=== PATIENT | female | born 1990 | race American Indian/Alaskan Native ===

== ENCOUNTER 2021-02-09 18:47 | Outpatient (CLI) | payer OTHER ==
[2021-02-09 19:19] LABS: BASOPHILS # (AUTO) 0.1 10^3/uL (0.0-0.1); BASOPHILS % (AUTO) 0.6 %; EOSINOPHILS # (AUTO) 0.2 10^3/uL (0.0-0.7); EOSINOPHILS % (AUTO) 1.3 %; HCT - HEMATOCRIT 33.9 % (37.0-47.0); HGB - HEMOGLOBIN 11.6 g/dL (12.0-16.0); LYMPHOCYTES # (AUTO) 3.2 10^3/uL (1.5-3.5); LYMPHOCYTES % (AUTO) 28.1 %; MEAN CORPUSCULAR HEMOGLOBIN 33.2 pg (27.0-31.0); MEAN CORPUSCULAR HGB CONC 34.2 g/dL (32.0-36.0); MEAN CORPUSCULAR VOLUME 97.1 fL (81.0-99.0); MEAN PLATELET VOLUME 9.1 fL (7.9-10.8); MONOCYTES # (AUTO) 0.6 10^3/uL (0.0-1.0); MONOCYTES % (AUTO) 5.2 %; NEUTROPHILS # (AUTO) 7.4 10^3/uL (1.5-6.6); NEUTROPHILS % (AUTO) 64.2 %; PLT - PLATELET COUNT 279 10^3/uL (130-450); RED BLOOD COUNT 3.49 10^6/uL (4.20-5.40); RED CELL DISTRIBUTION WIDTH 11.1 % (12.0-15.0); WHITE BLOOD COUNT 11.5 x10^3/uL (4.8-10.8)
[2021-02-09 19:57] LABS: MUDS CUTOFF CONCENTRATIONS CUTOFF CONC BELOW:
[2021-02-09 20:02] LABS: BILIRUBIN,URINE NEGATIVE (NEGATIVE); GLUCOSE, URINE (UA) NEGATIVE (NEGATIVE); KETONES,URINE (UA) NEGATIVE (NEGATIVE); LEUKOCYTE ESTERASE, URINE MODERATE (NEGATIVE); NITRITE,URINE NEGATIVE (NEGATIVE); OCCULT BLOOD,URINE NEGATIVE (NEGATIVE); PROTEIN,URINE NEGATIVE (NEGATIVE); UROBILINOGEN,URINE 0.2 (NORMAL) E.U./dL (NORMAL)
[2021-02-09 20:05] LABS: CLARITY,URINE HAZY (CLEAR)
[2021-02-09 20:10] LABS: RBC,URINE 0-5 /HPF (0-5)
[2021-02-09 20:11] LABS: AMPHETAMINE SCREEN,URINE NEGATIVE (NEGATIVE); BACTERIA,URINE Rare /HPF (None Seen); BARBITURATE SCREEN,UR NEGATIVE (NEGATIVE); BENZODIAZEPINES SCREEN, URINE NEGATIVE (NEGATIVE); COCAINE SCREEN URINE NEGATIVE (NEGATIVE); METHADONE SCREEN, URINE NEGATIVE (NEGATIVE); METHAMPHETAMINES SCREEN, URINE NEGATIVE (NEGATIVE); OPIATE SCREEN, URINE NEGATIVE (NEGATIVE); OXYCODONE SCREEN, URINE NEGATIVE (NEGATIVE); PROPOXYPHENE SCREEN, URINE NEGATIVE (NEGATIVE); SQUAMOUS EPITHELIAL CELL,UR FEW Squamous (<= Few); THC CANNABINOID SCREEN, URINE NEGATIVE (NEGATIVE); TRICYCLIC ANTIDEPRESSANT,URINE NEGATIVE (NEGATIVE)
--- NOTE | 2021-02-09 20:21 | Ultrasound Report ---
PROCEDURE: OB First Trimester w/TV INDICATIONS: SUPERVISION OF HIGH RISK OUTSIDE/PRIOR DATING DATA: Last menstrual period (LMP): 11/27/2020. LMP-based estimated date of delivery (DANE): 09/03/2021. First dating scan (date and location): 02/09/2021. Estimated date of delivery (DANE) from first dating scan: 09/17/2021. The below data below was generated using the ultrasound DANE of 09/17/2021 TECHNIQUE: Real-time scanning was performed of the fetus and maternal pelvic organs, with image documentation. Endovaginal scanning was also performed to better visualize the fetus and maternal ovaries. COMPARISON: None. FINDINGS: Embryo: Single living intrauterine fetus is present with a crown-rump length measuring 2.02 cm, 8 we eks 4 days. Yolk sac visualized. Heart rate: 164 bpm Measurement variability in dating: +/- 4 weeks by LMP, +/- 7 days by mean sac diameter (use before 6 weeks gestation if crown-rump length not able to be measured), +/- 5 days by crown-rump length (6-12 weeks gestation). Maternal organs: Ovaries unremarkable except for a presumed left-sided corpus luteum. IMPRESSION: Single living intrauterine fetus with a gestational age measuring 8 weeks and 4 days by today's ultra sound measurements responding to an DANE of 09/17/2021. Reviewed by: Montana Garcia MD on 02/09/2021 8:20 PM PDT Approved by: Montana Garcia MD on 02/09/2021 8:20 PM PDT Station ID: [id number]
== END 2021-02-09 18:48 | disposition home or self-care (01) ==
LOC: DI 18:47
PROVIDERS: ATTEND Obstetrics & Gynecology
DX: O09.91 Supervision of high risk pregnancy, unspecified, first trimester (principal); Z87.51 Personal history of pre-term labor; Z36.89 Encounter for other specified antenatal screening; Z3A.08 8 weeks gestation of pregnancy
CPT/HCPCS: 36415; 80306; 81001; 85025; 86592; 86762; 86787; 86803; 86850; 86900; 86901; 87086; 87340; 87389

== ENCOUNTER 2021-02-15 08:00 | Outpatient (CLI) | payer OTHER ==
[2021-02-15 22:31] LABS: CHLAMYDIA TRACHOMATIS DNA NEGATIVE (NEGATIVE); NEISSERIA GONORRHOEAE DNA NEGATIVE (NEGATIVE); TRICHOMONAS VAGINALIS DNA NEGATIVE (NEGATIVE)
== END 2021-02-15 23:59 | disposition home or self-care (01) ==
LOC: LAB.WC 08:00
PROVIDERS: ATTEND Obstetrics & Gynecology
DX: O09.90 Supervision of high risk pregnancy, unspecified, unspecified trimester (principal); Z36.89 Encounter for other specified antenatal screening
CPT/HCPCS: 87491; 87591; 87661

== ENCOUNTER 2021-04-30 13:17 | Outpatient (CLI) | payer OTHER | END 2021-04-30 13:18 | disposition home or self-care (01) | LOC: LAB.N 13:17 | PROVIDERS: ATTEND Obstetrics & Gynecology | DX: O09.90 Supervision of high risk pregnancy, unspecified, unspecified trimester (principal) | CPT/HCPCS: 81511 ==

== ENCOUNTER 2021-05-21 08:13 | Outpatient (CLI) | payer OTHER ==
--- NOTE | 2021-05-21 10:00 | Ultrasound Report ---
PROCEDURE: OB Transvaginal INDICATIONS: abdominal cramping cervical length OUTSIDE/PRIOR DATING DATA: Last menstrual period (LMP): 11/27/2020. LMP-based estimated date of delivery (DANE): 09/03/2021. First dating scan (date and location): 02/09/2021. Estimated date of delivery (DANE) from first dating scan: 09/17/2021. The below data below was generated using the ultrasound DANE of 09/17/2021 TECHNIQUE: Real-time scanning was performed of the fetus, with image documentation. COMPARISON: OB ultrasound 02/09/2021 FINDINGS: A single living intrauterine gestation is present. Presentation: Vertex Placenta: Placental position is anterior, without previa. Amniotic fluid index: 19.2 cm, within normal limits for gestational age. Largest pocket 7.5 cm heart rate: 138 beats per minutes. Maternal cervical canal: 3.9 cm long; normal length is 2.5 cm or more. Estimated gestational age from initial scan: 23 weeks 0 days. IMPRESSION: Single live intrauterine . Cervical length 3.9 cm. Reviewed by: Jane Hutchison MD on 05/21/2021 9:58 AM PST Approved by: Jane Hutchison MD on 05/21/2021 9:58 AM PST Station ID: [id number]
[2021-05-21 11:50] LABS: BACTERIAL VAGINOSIS DNA NEGATIVE (NEGATIVE); CANDIDA GLABRATA DNA NEGATIVE (NEGATIVE); CANDIDA GROUP DNA NEGATIVE (NEGATIVE); CANDIDA KRUSEI DNA NEGATIVE (NEGATIVE); TRICHOMONAS VAGINALIS DNA NEGATIVE (NEGATIVE)
[2021-05-21 12:23] VITALS: BP 116/72
[2021-05-21 18:01] LABS: CHLAMYDIA TRACHOMATIS DNA NEGATIVE (NEGATIVE); NEISSERIA GONORRHOEAE DNA NEGATIVE (NEGATIVE); TRICHOMONAS VAGINALIS DNA NEGATIVE (NEGATIVE)
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
== END 2021-05-21 12:30 | disposition home or self-care (01) ==
LOC: WFO 08:13 → FBP 08:19 → WFO 12:30
PROVIDERS: ATTEND Obstetrics & Gynecology
DX: O36.8120 Decreased fetal movements, second trimester, not applicable or unspecified (principal); R10.2 Pelvic and perineal pain; O09.212 Supervision of pregnancy with history of pre-term labor, second trimester; O34.212 Maternal care for vertical scar from previous cesarean delivery; O99.332 Smoking (tobacco) complicating pregnancy, second trimester; F17.290 Nicotine dependence, other tobacco product, uncomplicated; Z3A.23 23 weeks gestation of pregnancy
CPT/HCPCS: 82731; 87491; 87591; 87661; 87801; 99214

== ENCOUNTER 2021-06-26 08:38 | Outpatient (CLI) | payer OTHER ==
[2021-06-26 09:37] LABS: BILIRUBIN,URINE NEGATIVE (NEGATIVE); GLUCOSE, URINE (UA) NEGATIVE (NEGATIVE); KETONES,URINE (UA) NEGATIVE (NEGATIVE); LEUKOCYTE ESTERASE, URINE NEGATIVE (NEGATIVE); NITRITE,URINE NEGATIVE (NEGATIVE); OCCULT BLOOD,URINE NEGATIVE (NEGATIVE); PROTEIN,URINE NEGATIVE (NEGATIVE); UROBILINOGEN,URINE 0.2 (NORMAL) E.U./dL (NORMAL)
[2021-06-26 09:45] LABS: CLARITY,URINE CLEAR (CLEAR); WBC,URINE 0-3 /HPF (0-5)
[2021-06-26 09:46] LABS: BACTERIA,URINE Few /HPF (None Seen); RBC,URINE 0-5 /HPF (0-5); SQUAMOUS EPITHELIAL CELL,UR MOD Squamous (<= Few)
[2021-06-26 12:33] VITALS: BP 134/84
[2021-06-26 16:48] LABS: BACTERIAL VAGINOSIS DNA NEGATIVE (NEGATIVE)
[2021-06-26 16:49] LABS: CANDIDA GLABRATA DNA NEGATIVE (NEGATIVE); CANDIDA GROUP DNA NEGATIVE (NEGATIVE); CANDIDA KRUSEI DNA NEGATIVE (NEGATIVE); TRICHOMONAS VAGINALIS DNA NEGATIVE (NEGATIVE)
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
== END 2021-06-26 12:10 | disposition home or self-care (01) ==
LOC: WFO 08:38 → FBP 08:41 → WFO 12:10
PROVIDERS: ATTEND Obstetrics & Gynecology
DX: O47.02 False labor before 37 completed weeks of gestation, second trimester (principal); O99.332 Smoking (tobacco) complicating pregnancy, second trimester; F17.290 Nicotine dependence, other tobacco product, uncomplicated; Z87.51 Personal history of pre-term labor; Z3A.27 27 weeks gestation of pregnancy
CPT/HCPCS: 81001; 82731; 87086; 87661; 87801; 99213

== ENCOUNTER 2021-06-29 09:14 | Outpatient (CLI) | payer OTHER ==
[2021-06-29 10:44] LABS: HCT - HEMATOCRIT 30.9 % (37.0-47.0); HGB - HEMOGLOBIN 10.4 g/dL (12.0-16.0); MEAN CORPUSCULAR HEMOGLOBIN 33.2 pg (27.0-31.0); MEAN CORPUSCULAR HGB CONC 33.7 g/dL (32.0-36.0); MEAN CORPUSCULAR VOLUME 98.7 fL (81.0-99.0); MEAN PLATELET VOLUME 9.2 fL (7.9-10.8); RED BLOOD COUNT 3.13 10^6/uL (4.20-5.40); RED CELL DISTRIBUTION WIDTH 11.9 % (12.0-15.0); WHITE BLOOD COUNT 10.3 x10^3/uL (4.8-10.8)
== END 2021-06-29 09:15 | disposition home or self-care (01) ==
LOC: LAB 09:14
PROVIDERS: ATTEND Obstetrics & Gynecology
DX: O09.90 Supervision of high risk pregnancy, unspecified, unspecified trimester (principal); Z36.89 Encounter for other specified antenatal screening
CPT/HCPCS: 36415; 82950; 85027; 86850

== ENCOUNTER 2021-07-23 22:42 | Outpatient (CLI) | payer OTHER ==
[2021-07-23 23:25] VITALS: BP 123/75
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
== END 2021-07-24 | disposition home or self-care (01) ==
LOC: WFO 22:42 → FBP 22:43 → WFO 07-24
PROVIDERS: ATTEND Obstetrics & Gynecology
DX: O47.03 False labor before 37 completed weeks of gestation, third trimester (principal); O09.213 Supervision of pregnancy with history of pre-term labor, third trimester; O34.212 Maternal care for vertical scar from previous cesarean delivery; O99.613 Diseases of the digestive system complicating pregnancy, third trimester; K21.9 Gastro-esophageal reflux disease without esophagitis; O99.333 Smoking (tobacco) complicating pregnancy, third trimester; F17.290 Nicotine dependence, other tobacco product, uncomplicated; Z3A.31 31 weeks gestation of pregnancy; Z79.899 Other long term (current) drug therapy
CPT/HCPCS: 59025

== ENCOUNTER 2021-08-15 10:50 | Outpatient (CLI) | payer OTHER ==
[2021-08-15 11:01] LABS: HCT - HEMATOCRIT 33.3 % (37.0-47.0); HGB - HEMOGLOBIN 11.5 g/dL (12.0-16.0); MEAN CORPUSCULAR HEMOGLOBIN 33.7 pg (27.0-31.0); MEAN CORPUSCULAR HGB CONC 34.5 g/dL (32.0-36.0); MEAN CORPUSCULAR VOLUME 97.7 fL (81.0-99.0); MEAN PLATELET VOLUME 9.3 fL (7.9-10.8); RED BLOOD COUNT 3.41 10^6/uL (4.20-5.40); RED CELL DISTRIBUTION WIDTH 12.1 % (12.0-15.0); WHITE BLOOD COUNT 10.1 x10^3/uL (4.8-10.8)
[2021-08-15 11:38] LABS: % IRON SATURATION 20 % (20-50); IRON 94 ug/dL (28-170); TOTAL IRON BINDING CAPACITY 482 ug/dL (250-450); TRANSFERRIN 344 mg/dL (192-382)
== END 2021-08-15 10:51 | disposition home or self-care (01) ==
LOC: LAB 10:50
PROVIDERS: ATTEND Obstetrics & Gynecology
DX: O99.019 Anemia complicating pregnancy, unspecified trimester (principal); Z36.85 Encounter for antenatal screening for Streptococcus B
CPT/HCPCS: 36415; 82728; 83540; 84466; 85027; 87797

== ENCOUNTER 2021-08-24 09:48 | Outpatient (CLI) | payer OTHER ==
[2021-08-24] MEDS ORDERED: FERRIC GLUCONATE 125 MG in SODIUM CHLORIDE 0.9% 100ML 100 ML IV ONE (10:45)
[2021-08-24 12:27] VITALS: BP 122/79
== END 2021-08-24 12:30 | disposition home or self-care (01) ==
LOC: WFO 09:48 → FBP 09:57 → WFO 12:30
PROVIDERS: ATTEND Obstetrics & Gynecology
DX: O99.019 Anemia complicating pregnancy, unspecified trimester (principal)
CPT/HCPCS: 96365; J2916

== ENCOUNTER 2021-08-29 12:27 | Outpatient (CLI) | payer OTHER ==
[2021-08-29 12:48] LABS: BASOPHILS % (AUTO) 0.2 %; EOSINOPHILS # (AUTO) 0.1 10^3/uL (0.0-0.7); EOSINOPHILS % (AUTO) 0.7 %; HCT - HEMATOCRIT 33.3 % (37.0-47.0); HGB - HEMOGLOBIN 11.5 g/dL (12.0-16.0); LYMPHOCYTES # (AUTO) 1.6 10^3/uL (1.5-3.5); LYMPHOCYTES % (AUTO) 19.1 %; MEAN CORPUSCULAR HEMOGLOBIN 33.7 pg (27.0-31.0); MEAN CORPUSCULAR HGB CONC 34.5 g/dL (32.0-36.0); MEAN CORPUSCULAR VOLUME 97.7 fL (81.0-99.0); MEAN PLATELET VOLUME 9.3 fL (7.9-10.8); MONOCYTES # (AUTO) 0.5 10^3/uL (0.0-1.0); MONOCYTES % (AUTO) 6.4 %; NEUTROPHILS % (AUTO) 72.2 %; PLT - PLATELET COUNT 206 10^3/uL (130-450); RED BLOOD COUNT 3.41 10^6/uL (4.20-5.40); WHITE BLOOD COUNT 8.4 x10^3/uL (4.8-10.8)
== END 2021-08-29 12:28 | disposition home or self-care (01) ==
LOC: LAB 12:27
PROVIDERS: ATTEND Obstetrics & Gynecology
DX: Z01.812 Encounter for preprocedural laboratory examination (principal); O34.211 Maternal care for low transverse scar from previous cesarean delivery; Z87.51 Personal history of pre-term labor
CPT/HCPCS: 36415; 85025; 86850; 86900; 86901; 86920

== ENCOUNTER 2021-08-30 05:22 | Inpatient (IN) | payer OTHER ==
--- NOTE | 2021-08-24 06:19 | HISTORY & PHYSICAL EXAMINATION ---
HPI - History of Present Illness HPI Comment/Other: HPI: Patient presents today for her prental follow-up visit at 36.0 wks. She is here for a pre-op visit for her scheduled section on 08/30/21. Alexandra injection adminstered and patient tolerated well. ...................................................................Milagros Sanchez RN August 22, 2021 2:44 PM Patient is a 31 yo at 36 wga here for ELOISE visit and preop assessment. Please see initail OB visit. Patient has a complicated OB history with delivery via classical . Patient was seen by MFM, who recommended delivery by repeat CS at 37 weeks. She is scheduled for delivery in the coming week. Her last dose of 17 OHP was today. SHE DOES NOT WANT A TUBAL LIGATION. Otherwise, she is doing well. No complaints. +FM. No LOF/VB/CTX. Reviewed GBS negative. Argelia presents today for her weekly progesterone injection. Medication was received by [facility] and inspected. Medication administered and tolerated well. ...................................................................Milagros Sanchez RN August 22, 2021 2:45 PM Allergies: No Known Allergies Medications: sertraline 50 mg tablet (sertraline) Take 1 tablet by mouth every morning OK to increase to 2 tablets after one week * BREAST PUMP MISC (MISC. DEVICES) 1 each as directed Double electric breast pump with breast pump kit. sig: pump each breast as needed Dx: Z39.1 Lactating Mother DAVID: 5 years ferrous sulfate 325 mg (65 mg iron) tablet (ferrous sulfate) Take 1 tablet by mouth twice a day Vitamin C 250 mg tablet (ascorbic acid (vitamin c)) Take 1 tablet by mouth twice a day with iron progesterone micronized 200 mg capsule (progesterone micronized) Take 1 capsule once a day Place one capsule per vagina at bedtime famotidine 40 mg tablet (famotidine) Take 1 tablet by mouth once a day * Adult Low Dose Aspirin 81 mg tablet,delayed release (DR/EC) (aspirin) Take 1 tablet by mouth once a day * prenat.vits,romero,ezv-xnog-mnobw tablet (prenat.vits,romero,dpv-uxom-xoddq) Take 1 tablet by mouth once a day Problems: Preoperative examination (ICD-V72.84) (FAW16-V31.818) Anemia in , unspecified trimester (ICD-648.23) (AHF04-R25.019) screening for streptococcus B (ICD-V28.6) (SCD87-A09.85) Anemia in , unspecified trimester (ICD-648.23) (QEE05-F71.019) Screening for std (ICD-V74.5) (HOV38-N27.3) Encounter for other specified screening (VUU87-D33.89) G6PD deficiency (ICD-282.2) (TJR28-N13.0) delivery (ICD-669.70) (PNC63-P20) Depression (ICD-311) (QMG34-T57.9) History of labor (ICD-V13.21) (GJJ11-W15.51) Supervision high risk , unspecified trimester (ICD-V23.9) (ICD10- O09.90) Vital Signs: Patient Profile: 31 Years Old Female Height: 59 inches Weight: 206.6 pounds BMI: 41.88 Temp: 96.7 degrees F temporal BP sittin / 78 Cuff size: large Pt. in pain? no Vitals Entered By: Milagros Sanchez RN (August 22, 2021 3:29 PM) Past Medical History: Depression/bulimia Past Surgical History: section w/ classical incision Flowsheet View for Follow-up Visit Estimated weeks of gestation: 36 0/7 Weight: 206.6 Blood pressure: 122 / 78 Fundal height: 37 FHR: 143 Vaginal bleeding: no Vaginal discharge: no activity: yes Labor symptoms: no Next visit: 1 wk Comment: Consented for CS today. Does NOT want tubal ligation. No other concerns. 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 Physical Constitutional: GEN: NAD HEAD: NCAT EYES: No scleral icterus or conjunctival injection CV: RRR RESP: CTAB, normal effort ABD: S&NT/ND PSYCH: appropriate affect NEURO: alert and oriented, normal gait and coordination EXT: WWP Impression & Recommendations: Problem # 1: Supervision high risk , unspecified trimester (ICD-V23.9) (YKB47-H45.90) LMP: 11/27/2020 gives DANE 09/03/2021. Ultrasound on 02/09 at 8.4wks gives DANE 09/17/2021; not consistent with LMP. UPDATE: Iniital US on 01/30/21 at 7w4d gives WDD 09/19/20, not cw LMP. Final DANE: 09/19/2021. G6PD deficiency- noted on records only. Confirmed with patient ASA at 12 weeks- taking Hx of PTL: on 17-OHP. No longer needs TVCL. SVE recommended per [facility] if concerned re: labor -Last dose of 17OHP today with plan for delivery via CS next week. HCT 30.9- on BID iron and vit C with plan to recheck in 4 weeks -getting IV iron infusion this week Depression improved. -Doing well on sertraline at this time. Does not wish to increase at this time. -Referrral for therapy submitted, But patient has not O+/rubella immune Genetic testing: QUAD wnl FAS:scheduled with MFM wnl anterior placenta CL 3.6 cm Glucola: 135 Flu: 04/04/2021 Tdap: 06/21/2021 COVID: vaccine complete x2; Moderna, Will confirm dates. Believes it was given in August 2020 GBS-negative HSV: denies Breast pump rx:06/21/21. Was given additional copy MOD: scheduled repeat c/s- likely at 37 wks given hx of classical CS. Confirmed with MFM PP contraception: TBD. DECLINES BTL Pap : per patient 2019 Orders: 0502F - SUBSEQUENT VISIT (CPT-0502F) Problem # 2: Preoperative examination (ICD-V72.84) (JTB70-F13.818) Orders: PRE OP -00040 (CPT-72851) Reviewed risks/benefits/alternatives to and BTL Risks include, but are not limited to, bleeding, infection, damage to neatby tissue and organs. On average, EBL of up to 1 liter is considered within normal limits for CS. Risks of blood transfusion include infection Risk of HIV 1/2million nationwide Risk of Hepatitis 1/1 million Risks of transfusion reaction Infection risk moderate given clean/contaminated nature of procedure and IV antibiotics will be given. Damage to nearby tissue and organs including bladder, bowel, ureters, blood vessels, nerves, and fetus Damage may be noted intra-op and may be delayed until after the procedure is complete Reviewed management of complications and efforts to avoid such outcomes but reviewed that they may occur despite our best efforts Confirmed that sterlization is NOT desired Written informed consent obtained. 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
[2021-08-30] MEDS ORDERED: fentaNYL 100 MCG/2 ML VIAL ONE (07:23)
[2021-08-30] MEDS ORDERED: ePHEDrine 50 MG/ML VIAL IVP ONE (07:26)
[2021-08-30] MEDS ORDERED: SODIUM CHLORIDE 0.9% 10 ML VIAL IVP ONE (07:26)
[2021-08-30] MEDS ORDERED: PHENYLEPHRINE 10 MG/ML VIAL ONE (07:26)
[2021-08-30] MEDS ORDERED: KETOROLAC 30 MG/ML VIAL ONE (07:26)
[2021-08-30] MEDS ORDERED: ONDANSETRON 4 MG/2 ML VIAL ONE ×2 (07:26→09:37)
[2021-08-30] MEDS ORDERED: ROPIVACAINE 0.5% PF 20 ML AMPULE ONE (07:26)
--- NOTE | 2021-08-30 07:28 | ANESTHESIA ---
Pre-Anesthesia VS, & Labs - Diagnosis previous c/s with classical incision - Procedure repeat c/s Vital Signs: Temp Pulse Resp BP Pulse Ox 98.0 C H 94 22 128/81 H 08/30/21 05:59 08/30/21 05:59 08/30/21 05:59 08/30/21 05:59 Height: 4 ft 11 in Weight (kg): 92.079 kg Body Mass Index: 41.0 BMI Classification: Morbidly Obese - NPO >8 hours - Is Patient ?: Yes - Lab Results Lab results reviewed: Yes Home Medications and Allergies Allergies/Adverse Reactions: Allergies Allergy/AdvReac Type Severity Reaction Status Date / Time No Known Drug Allergies Allergy Verified 08/24/21 10:24 Anes History & Medical History - Anesthetic History Family history of Anesthesia Complications: Denies Family history of Malignant Hyperthermia: Denies - Medical History Cardiovascular: reports: None Pulmonary: reports: Asthma (childhood) Gastrointestinal: reports: GERD (during ) Urinary: reports: None Neuro: reports: None Musculoskeletal: reports: None Endocrine/Autoimmune: reports: None Blood Disorders: reports: Anemia (iron infusion 08/24/21) Skin: reports: None Smoking Status: Never smoker Psychosocial: reports: No issues indicated History of Cancer?: No - Surgical History Gynecologic: reports: section - Obstetrical History Events: reports: Other (classical incision) Complications: reports: None Exam General: Alert, Oriented x3, Cooperative, No acute distress Dental: WNL Mouth Openin Fingerbreadth Neck Mobility: Normal Mallampati classification: II Thyromental Distance: 4-6 cm Respiratory: Lungs clear, Normal breath sounds, No respiratory distress, No accessory muscle use Cardiovascular: Regular rate, Normal S1, Normal S2, No murmurs Mental/Cognitive Status: Alert/Oriented X3, Normal for patient Plan Anesthesia Type: Spinal, Transverse Abdominis Plane (TAP) Block (Bilateral) Regional Block: Per Surgeon's request for Post Op pain control Consent for Procedure(s) Verified and Reviewed: Yes Code Status: Attempt Resuscitation ASA classification: 2-Mild systemic disease Is this case an emergency?: No
[2021-08-30] MEDS ORDERED: SODIUM CHLORIDE FLUSH 0.9% 10 ML SYRINGE IVP PRN (07:32)
[2021-08-30] MEDS ORDERED: OXYTOCIN/SODIUM CHLORIDE 500 ML IV PRN (07:32)
[2021-08-30] MEDS ORDERED: ONDANSETRON ODT 4 MG TABLET TL PRN (07:32)
[2021-08-30] MEDS: ACETAMINOPHEN 500 MG TABLET PO SCH ×3 (07:59→23:55)
[2021-08-30] MEDS ORDERED: LACTATED RINGERS 1,000 ML IV SCH ×2 (08:00→11:00)
[2021-08-30] MEDS ORDERED: GABAPENTIN 300 MG CAPSULE PO ONE (08:00)
[2021-08-30] MEDS ORDERED: DEXAMETHASONE 4 MG/ML VIAL ONE (09:11)
[2021-08-30] MEDS ORDERED: METHYLERGONOVINE 0.2 MG/ML VIAL ONE (09:40)
[2021-08-30] MEDS ORDERED: ATROPINE ABBOJECT 1 MG/10 ML SYRINGE IVP PRN (10:13)
[2021-08-30] MEDS ORDERED: MORPHINE 2 MG/ML CARPUJECT IVP PRN (10:13)
[2021-08-30] MEDS ORDERED: NALOXONE 0.4 MG/ML VIAL IVP PRN (10:13)
[2021-08-30] MEDS ORDERED: HYDROmorphone 0.5 MG/0.5 ML SYRINGE IVP PRN (10:13)
[2021-08-30] MEDS ORDERED: ONDANSETRON 4 MG/2 ML VIAL IVP PRN (10:13)
[2021-08-30] MEDS ORDERED: ePHEDrine 50 MG/ML VIAL IVP PRN (10:13)
[2021-08-30] MEDS ORDERED: METOCLOPRAMIDE 10 MG/2 ML VIAL IVP PRN (10:13)
[2021-08-30] MEDS ORDERED: fentaNYL 100 MCG/2 ML VIAL IVP PRN (10:13)
[2021-08-30] MEDS ORDERED: LACTATED RINGERS 1,000 ML IV ONE (10:44)
--- NOTE | 2021-08-30 10:50 | OPERATIVE REPORT ---
Operative Report - General Admit Date: 08/30/21 Planned Procedure: Repeat low transverse section Pre-Op Diagnosis: Previous classical section, 37 weeks gestation Procedure Performed: Repeat low transverse section Post Op Diagnosis: Delivered - Procedure Note Primary Surgeon: Silas Ponce MD Secondary Surgeon: Heriberto Burris MD Anesthesia Provider: Malia Corley CRNA Anesthesia Technique: Spinal Pathology: None IV Fluids (mL): 2,000 Estimated Blood Loss (mL): 900 Urine Output (mL): 150 Complications: None - Other Other Information/Narrative: Preoperative diagnoses previous classical section 37 weeks gestation History of labor G6PD deficiency Postoperative diagnoses Same Status post repeat low transverse section section was recommended. Risks, benefits and alternatives were discussed including but not limited to infection, bleeding that may require blo od products or hysterectomy for life saving measures, injury to surrounding organs including but not limited to bowel, bladder, ureters, tubes and ovaries and/or the baby. Should injury occur it could require longer/additional surgery to repair. The patient stated understanding and desired to proceed. All questions were answered posed by patient. Prior to being taken to the OR, to grams of cefazolin IV was administered. The patient was taken to the operating room where regional anesthesia was found to be adequate. She was then prepared and draped in the usual sterile fashion in the dorsal supine position with a leftward tilt displacing the uterus. Galvan was draining to gravity. SCDs were on bilateral lower extremities. A pfannenstiel skin incision was then made with the scalpel and carried through to the underlying layer of fascia. The fascia was incised in the midline and the incision extended laterally with the Pandey scissors. The superior aspect of the facial incision was then grasped with the Marycruz clamps, elevated and the underlying rectus muscles dissected off sharply. Attention was then turned to the inferior aspect of this incision which in a similar fashion was grasped, elevated with the Marycruz clamps and the rectus muscle dissected off sharply. The rectus muscles were in the midline. The peritoneum identified, grasped with the pick-ups and entered sharply with the Metzenbaum scissors. The peritoneal incision was then extended superiorly and inferiorly with good visualization of the bladder. The bladder blade was inserted. The vesicouterine peritoneum was identified, grasped with the pick-ups, and entered sharply with Metzenbaum scissors. This incision was then extended laterally and the bladder flap created digitally. The bladder blade was reinserted. At this point a brisk bleeder was noted lower uterine segment. Bleeding was stopped with compression as baby was delivered. The lower uterine segment was identified and incised in a transverse fashion with the scalpel. The uterine incision was then extended bluntly laterally. Artificial rupture of membranes demonstrated clear fluid. The bladder blade was removed. The fetus was in a cephalic presentation. The infants head delivered atraumatically. The anterior shoulders were delivered followed by the posterior shoulders then the remainder of the body. The infants mouth and nose were bulb suctioned. The umbilical cord was clamped times two and cut. The infant was handed to the cellar hand. Cord blood gases were obtained. The placenta was removed with gentle traction. 20 units of oxytocin were added to IVF and allowed to run freely. The uterus was exteriorized and cleared of all clots and debris. The uterine incision was inspected and found to be without any extensions and was repaired with 0 Vicryl in a running, locked fashion. A second imbricating layer was performed. Several other [id number] sutures were used to achieve hemostasis. Due to oozing of the bladder flap, Surgicel was placed along the edge. Upon inspection, the repaired hysterotomy was found to be hemostatic. The uterus was firm and returned to the abdomen. The gutters were cleared of all clots and debris. The peritoneum was closed with a running suture. The muscles were reapproximated with 2-0 Vicryl. The fascia was reapproximated with 0 Vicryl in a running fashion. The subcutaneous tissue was closed with 2-0 Vicryl. The skin was closed in a subcuticular fashion with 4-0 Monocryl.. The patient tolerated the procedure well. Sponge, lap and needle counts were correct times three. The patient was taken to the recovery room in stable condition.
[2021-08-30] MEDS: KETOROLAC 30 MG/ML VIAL IVP SCH ×3 (12:31→23:56)
[2021-08-30] MEDS: DOCUSATE SODIUM 100 MG CAPSULE PO SCH ×2 (12:53→20:53)
--- NOTE | 2021-08-30 13:16 | ANESTHESIA POST OP EVALUATION ---
Anesthesia Post Eval - Post Anesthesia Eval Vitals: Last Vital Signs Temp 36.4 C L 08/30/21 11:20 Pulse 69 08/30/21 11:30 Resp 16 08/30/21 11:30 BP 123/74 08/30/21 11:30 Pulse Ox 100 08/30/21 11:30 CV Function Including HR & BP: Stable Pain Control: Satisfactory Nausea & Vomiting: Negative Mental Status: Baseline Respiratory Status: Airway Patent Hydration Status: Satisfactory Anesthesia Complications: None
[2021-08-30] MEDS: SODIUM CHLORIDE FLUSH 0.9% 10 ML SYRINGE IVP SCH ×2 (18:16→20:53)
[2021-08-30] MEDS: SIMETHICONE CHEW 80 MG TABLET PO PRN (20:53)
[2021-08-30] MEDS: CALCIUM CARBONATE CHEW 500 MG TABLET PO SCH (22:28)
[2021-08-31 05:51] LABS: BASOPHILS % (AUTO) 0.1 %; EOSINOPHILS % (AUTO) 0.1 %; HCT - HEMATOCRIT 25.2 % (37.0-47.0); HGB - HEMOGLOBIN 8.7 g/dL (12.0-16.0); LYMPHOCYTES # (AUTO) 1.6 10^3/uL (1.5-3.5); LYMPHOCYTES % (AUTO) 9.6 %; MEAN CORPUSCULAR HEMOGLOBIN 33.9 pg (27.0-31.0); MEAN CORPUSCULAR HGB CONC 34.5 g/dL (32.0-36.0); MEAN CORPUSCULAR VOLUME 98.1 fL (81.0-99.0); MEAN PLATELET VOLUME 9.5 fL (7.9-10.8); MONOCYTES # (AUTO) 0.9 10^3/uL (0.0-1.0); MONOCYTES % (AUTO) 5.7 %; NEUTROPHILS # (AUTO) 13.7 10^3/uL (1.5-6.6); NEUTROPHILS % (AUTO) 83.6 %; PLT - PLATELET COUNT 185 10^3/uL (130-450); RED BLOOD COUNT 2.57 10^6/uL (4.20-5.40); WHITE BLOOD COUNT 16.4 x10^3/uL (4.8-10.8)
[2021-08-31] MEDS: KETOROLAC 30 MG/ML VIAL IVP SCH (06:18)
[2021-08-31] MEDS: SODIUM CHLORIDE FLUSH 0.9% 10 ML SYRINGE IVP SCH (06:19)
--- NOTE | 2021-08-31 07:15 | PROVIDER PROGRESS NOTE ---
Subjective - Prog Note Date Prog Note Date: 08/31/21 Prog Note Time: 07:13 - Subjective Pt reports feeling: Improved Subjective: Subjective Patient reports she is doing well. Lochia appropriate. Denies heavy bleeding. Ambulating. Pelvic and abdominal pain well-controlled. Tolerating oral intake. Diet: Regular. Voiding without difficulty. Passing flatus. Denies BM. Patient is bonding with baby in room Breast feeding going well. Denies feeling lightheaded, dizzy or excessively fatigued. Objective General: Alert, oriented, no apparent distress. Cardiovascular: Regular rate. Regular rhythm. Lungs: No increased work of breathing. Abdomen: Uterus firm. Below umbilicus. No guarding or rebound. Incision: Clean, dry, and intact. Assessment and Plan day 1. -Routine care -Anticipate discharge tomorrow appropriate blood drop after surgery. Anemia -Patient with a previous H/H of 11.5/33.3 and postoperative of 8.7/25.2. No signs of hypovolemia. -Continue iron supplementation. Objective - Vital Signs/Intake & Output Vital Signs: Vital Signs x48h Temp Pulse Resp BP 08/31/21 04:57 98.6 F 80 20 113/62 08/31/21 00:04 210.0 F H 89 20 130/77 Intake & Output: Intake & Output 08/28/21 08/29/21 08/30/21 08/31/21 23:59 23:59 23:59 23:59 Intake Total 1450 250 Output Total 1550 900 Balance -100 -650 - Lab Results Fish Bones: 08/31/21 05:41 Other Labs: Lab Results x24hrs 08/31/21 Range/Units 05:41 WBC 16.4 H (4.8-10.8) x10^3/uL RBC 2.57 L (4.20-5.40) 10^6/uL Hgb 8.7 L (12.0-16.0) g/dL Hct 25.2 L (37.0-47.0) % MCV 98.1 (81.0-99.0) fL MCH 33.9 H (27.0-31.0) pg MCHC 34.5 (32.0-36.0) g/dL RDW 12.0 (12.0-15.0) % Plt Count 185 (130-450) 10^3/uL MPV 9.5 (7.9-10.8) fL Neut # (Auto) 13.7 H (1.5-6.6) 10^3/uL Lymph # (Auto) 1.6 (1.5-3.5) 10^3/uL Stanly # (Auto) 0.9 (0.0-1.0) 10^3/uL Eos # (Auto) 0.0 (0.0-0.7) 10^3/uL Baso # (Auto) 0.0 (0.0-0.1) 10^3/uL Absolute Nucleated RBC 0.00 x10^3/uL Nucleated RBC % 0.0 /100WBC
--- NOTE | 2021-08-31 07:20 | Discharge Plan ---
Discharge Plan Problem Reviewed?: Yes Disposition: Home, Self Care Condition: Good Prescriptions: Acetaminophen [Acetaminophen Extra Strength] 1,000 mg PO Q8H PRN #60 tablet PRN Reason: Pain Docusate Sodium 100Mg Capsule [Colace 100Mg Capsule] 100 - 200 mg PO BID PRN #60 cap PRN Reason: Constipation Ibuprofen [Motrin] 600 mg PO Q6H PRN #30 tab PRN Reason: Pain oxyCODONE [Roxicodone] 2.5 - 5 mg PO Q4H PRN #24 tablet PRN Reason: Severe Pain Diet: Regular Activity Restrictions: Additional Comments (No heavy lifting for 6 weeks. Avoid baths until postoperative visit. Showers are fine.) Shower Restrictions: No Instruction Topics: C Section Dc No Smoking: If you smoke, Please STOP! Call for help.
[2021-08-31] MEDS: ACETAMINOPHEN 500 MG TABLET PO SCH ×2 (08:39→17:29)
[2021-08-31] MEDS: DOCUSATE SODIUM 100 MG CAPSULE PO SCH ×2 (08:40→20:49)
[2021-08-31] MEDS: SERTRALINE 50 MG TABLET PO SCH (08:40)
[2021-08-31] MEDS: IBUPROFEN 600 MG TABLET PO SCH ×2 (12:16→20:48)
[2021-08-31] MEDS: oxyCODONE 5 MG TABLET PO PRN ×2 (15:40→20:48)
[2021-09-01] MEDS: ACETAMINOPHEN 500 MG TABLET PO SCH ×2 (01:59→10:10)
[2021-09-01] MEDS: oxyCODONE 5 MG TABLET PO PRN ×3 (01:59→12:22)
[2021-09-01] MEDS: IBUPROFEN 600 MG TABLET PO SCH ×2 (02:47→09:06)
[2021-09-01] MEDS: SIMETHICONE CHEW 80 MG TABLET PO PRN (02:47)
[2021-09-01 08:45] VITALS: BP 118/60
[2021-09-01] MEDS: SERTRALINE 50 MG TABLET PO SCH (09:06)
[2021-09-01] MEDS: DOCUSATE SODIUM 100 MG CAPSULE PO SCH (09:06)
--- NOTE | 2021-09-01 11:46 | DISCHARGE SUMMARY ---
Discharge Summary Admit Date: 08/30/21 Discharge Date: 09/01/21 Discharging Provider: García Dunn MD Condition at Discharge: Good Discharge Disposition: 01 Home, Self Care - DIAGNOSES Admission Diagnoses: Scheduled repeat section 37 weeks gestation Discharge Diagnoses with Status of Each Condition: Status post repeat section - HOSPITAL COURSE Hospital Course: 31-year-old G4, P4 living 3 postop day 2 status post repeat section at 37 weeks. Patient had a known history of prior classical section. She underwent an uncomplicated repeat section. She met postoperative milestones and was stable for discharge on postop day 2. Of note the patient was noted to be anemic and was treated with iron. She was given discharge instructions and follow-up recommendations. - ALLERGIES Allergies/Adverse Reactions: Allergies Allergy/AdvReac Type Severity Reaction Status Date / Time No Known Drug Allergies Allergy Verified 08/24/21 10:24 - MEDICATIONS Home Medications: Ambulatory Orders Medication Instructions Recorded Confirmed Acetaminophen [Acetaminophen Extra 1,000 mg PO Q8H PRN #60 tablet 08/31/21 Strength] Docusate Sodium 100Mg Capsule 100 - 200 mg PO BID PRN #60 cap 08/31/21 [Colace 100Mg Capsule] Sertraline [Zoloft] 50 mg PO DAILY tablet 08/31/21 Ibuprofen [Motrin] 600 mg PO Q6H #30 tablet 09/01/21 Ibuprofen [Motrin] 600 mg PO Q6H PRN #30 tab 09/01/21 oxyCODONE [Roxicodone] 2.5 - 5 mg PO Q4HR #24 tablet 09/01/21 oxyCODONE [Roxicodone] 2.5 - 5 mg PO Q4HR PRN #24 tablet 09/01/21 - PHYSICAL EXAM AT DISCHARGE General Appearance: positive: No acute distress Abdomen: positive: Non-tender, Other (mildly distended, soft, incision clean and dry ) - LABS Result Diagrams: 08/31/21 05:41 - FOLLOW UP Follow Up: With Dr. Jones in 2- 3 weeks
--- NOTE | 2021-09-01 12:12 | Discharge Plan ---
Discharge Plan Problem Reviewed?: Yes Disposition: Home, Self Care Condition: Good Prescriptions: oxyCODONE [Roxicodone] 2.5 - 5 mg PO Q4HR PRN #24 tablet PRN Reason: Pain oxyCODONE [Roxicodone] 2.5 - 5 mg PO Q4HR #24 tablet Acetaminophen [Acetaminophen Extra Strength] 1,000 mg PO Q8H PRN #60 tablet PRN Reason: Pain Docusate Sodium 100Mg Capsule [Colace 100Mg Capsule] 100 - 200 mg PO BID PRN #60 cap PRN Reason: Constipation Ibuprofen [Motrin] 600 mg PO Q6H PRN #30 tab PRN Reason: Pain Ibuprofen [Motrin] 600 mg PO Q6H #30 tablet Activity Restrictions: Additional Comments (No heavy lifting for 6 weeks. Avoid baths until postoperative visit. Showers are fine.) Shower Restrictions: No Instruction Topics: C Section Dc No Smoking: If you smoke, Please STOP! Call for help.
== END 2021-09-01 13:20 | disposition home or self-care (01) | DRG 788 ==
LOC: FBP 05:22
PROVIDERS: ADMIT Obstetrics & Gynecology; ATTEND Obstetrics & Gynecology
PROC: 10D00Z1 Extraction of Products of Conception, Low, Open Approach (ICD-10-PCS; 2021-08-30)
PROC: 10907ZC Drainage of Amniotic Fluid, Therapeutic from Products of Conception, Via Natural or Artificial Opening (ICD-10-PCS; principal; 2021-08-30 07:30)
DX: O34.212 Maternal care for vertical scar from previous cesarean delivery (principal); Z3A.37 37 weeks gestation of pregnancy; Z37.0 Single live birth; O99.214 Obesity complicating childbirth; E66.01 Morbid (severe) obesity due to excess calories; O99.02 Anemia complicating childbirth; Z87.891 Personal history of nicotine dependence; O99.344 Other mental disorders complicating childbirth; F32.A Depression, unspecified
CPT/HCPCS: 36415; 85025; A9270; J2210; J7040; J7120; Q0162

== ENCOUNTER 2021-09-06 08:53 | Outpatient (CLI) | payer OTHER ==
[2021-09-06 12:23] LABS: HCT - HEMATOCRIT 30.4 % (37.0-47.0); HGB - HEMOGLOBIN 9.8 g/dL (12.0-16.0); MEAN CORPUSCULAR HEMOGLOBIN 32.8 pg (27.0-31.0); MEAN CORPUSCULAR HGB CONC 32.2 g/dL (32.0-36.0); MEAN CORPUSCULAR VOLUME 101.7 fL (81.0-99.0); RED BLOOD COUNT 2.99 10^6/uL (4.20-5.40); RED CELL DISTRIBUTION WIDTH 12.4 % (12.0-15.0); WHITE BLOOD COUNT 8.9 x10^3/uL (4.8-10.8)
== END 2021-09-06 08:54 | disposition home or self-care (01) ==
LOC: LAB.N 08:53
PROVIDERS: ATTEND Obstetrics & Gynecology
DX: Z39.1 Encounter for care and examination of lactating mother (principal); O99.019 Anemia complicating pregnancy, unspecified trimester
CPT/HCPCS: 36415; 85027

== ENCOUNTER 2022-01-01 07:44 | Emergency (ER) | payer OTHER ==
[2022-01-01] MEDS ORDERED: diphenhydrAMINE INJ 50 MG/ML VIAL IVP STA (08:12)
[2022-01-01] MEDS ORDERED: KETOROLAC 15 MG/ML VIAL IVP STA (08:12)
[2022-01-01] MEDS ORDERED: METOCLOPRAMIDE 10 MG/2 ML VIAL IVP STA (08:12)
[2022-01-01] MEDS ORDERED: SODIUM CHLORIDE 0.9% 1,000 ML IV STA (08:12)
--- NOTE | 2022-01-01 08:13 | ED Physician Documentation ---
PD HPI HEADACHE - Stated complaint Stated Complaint: HEAD PX - Chief complaint Chief Complaint: Neuro - History obtained from History obtained from: Patient - Additional information Additional information: 31-year-old woman who gets migraines every few months. She developed a gradual onset occipital headache radiating to the temples associated with severe light sensitivity and phonophobia without vomiting starting around 3 AM today. She tried some Excedrin which was not effective. No fevers or neck stiffness. Her is here with her and she is not driving. 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 - Present Medications Home Medications: Ambulatory Orders Medication Instructions Recorded Confirmed Ibuprofen [Motrin] 600 mg PO Q6H PRN #30 tab 09/01/21 01/01/22 Pnv No.95/Ferrous Fum/Folic AC 1 each PO DAILY 01/01/22 01/01/22 [ Tablet] SUMAtriptan [Imitrex] 25 mg PO BID PRN #20 tablet 01/01/22 - Allergies Allergies/Adverse Reactions: Allergies Allergy/AdvReac Type Severity Reaction Status Date / Time No Known Drug Allergies Allergy Verified 01/01/22 07:53 - Social History Does the pt smoke?: No Smoking Status: Never smoker Does the pt drink ETOH?: No Does the pt have substance abuse?: No - Immunizations Immunizations are current?: Yes PD ED PE NORMAL - Vitals Vital signs reviewed: Yes - General General: Alert and oriented X 3, No acute distress - HEENT HEENT: PERRL, EOMI - Neck Neck: Supple, no meningeal sign, No bony TTP - Cardiac Cardiac: RRR, No murmur - Respiratory Respiratory: No respiratory distress, Clear bilaterally - Abdomen Abdomen: Non tender - Back Back: No CVA TTP, No spinal TTP - Derm Derm: Normal color, Warm and dry - Extremities Extremities: No edema, No calf tenderness / cord - Neuro Neuro: Alert and oriented X 3, buckle stapler 2-12 intact, No motor deficit, No sensory deficit, Normal speech Eye Opening: Spontaneous Motor: Obeys Commands Verbal: Oriented GCS Score: 15 Results - Vitals Vitals: Vital Signs - 24 hr 01/01/22 07:53 Temperature 36.7 C Heart Rate 68 Respiratory 16 Rate Blood Pressure 117/76 O2 Saturation 99 Oxygen O2 Source Room air PD MEDICAL DECISION MAKING - ED course ED course: The headache is gradual in onset and similar to prior headaches. As such I doubt subarachnoid hemorrhage. There are no infectious symptoms such as fever or stiff neck to make me suspect meningitis. No carbon monoxide exposure by history. She was administered IV Reglan, Benadryl, Toradol, and fluids and on recheck at 9:09 AM headache was gone. Departure - Departure Disposition: 01 Home, Self Care Clinical Impression: Migraine Condition: Good Record reviewed to determine appropriate education?: Yes Instructions: ED Headache Migraine Prescriptions: SUMAtriptan [Imitrex] 25 mg PO BID PRN #20 tablet PRN Reason: Headache Comments: Call your doctor to arrange a follow-up appointment, make the next available appointment. In the interim, return anytime if worse or if new symptoms develop. Forms: Activity restrictions
[2022-01-01 10:24] VITALS: BP 136/91
== END 2022-01-01 10:20 | disposition home or self-care (01) ==
LOC: ED 07:44
DX: G43.109 Migraine with aura, not intractable, without status migrainosus (principal)
CPT/HCPCS: 96361; 96374; 96375; 99284; J1200; J2765

== ENCOUNTER 2024-02-01 18:54 | Emergency (ER) | payer OTHER ==
[2024-02-01 19:11] VITALS: BP 126/76; O2SAT 98
--- NOTE | 2024-02-01 19:29 | ED Physician Documentation ---
PD HPI URI - Stated complaint Stated Complaint: COUGH/DIAZ - Chief complaint Chief Complaint: Resp - History obtained from History obtained from: Patient - Additional information Additional information: 33-year-old female presents with headache, cough, diarrhea, malaise. Positive home COVID-19 test. Patient states that she was told by her [employer] officer to come to the ER for evaluation. Patient states her primary concern is that she cannot stop coughing. Took ibuprofen for headache prior to arrival.States that she feels somewhat short of breath at the end of sentences. Review of Systems Constitutional: reports: Chills. denies: Fever, Myalgias Nose: denies: Rhinorrhea / runny nose, Foreign Body Throat: denies: Sore throat Cardiac: denies: Chest pain / pressure, Palpitations, Calf pain Respiratory: reports: Dyspnea. denies: Cough, Wheezing GI: reports: Diarrhea. 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 - Present Medications Home Medications: Ambulatory Orders Medication Instructions Recorded Confirmed Ibuprofen [Motrin] 600 mg PO Q6H PRN #30 tab 09/01/21 02/01/24 SUMAtriptan [Imitrex] 25 mg PO BID PRN #20 tablet 01/01/22 02/01/24 Benzonatate [Tessalon] 200 mg PO TID PRN #30 cap 02/01/24 Multivitamin 1 each PO DAILY 02/01/24 02/01/24 Propranolol [Inderal] 40 mg PO DAILY 02/01/24 02/01/24 Sertraline [Zoloft] 50 mg PO DAILY 02/01/24 02/01/24 - Allergies Allergies/Adverse Reactions: Allergies Allergy/AdvReac Type Severity Reaction Status Date / Time No Known Drug Allergies Allergy Verified 02/01/24 19:00 - Social History Does the pt smoke?: No Smoking Status: Former smoker Does the pt drink ETOH?: No Does the pt have substance abuse?: No - Immunizations Immunizations are current?: Yes - POLST Patient has POLST: No PD ED PE NORMAL - Vitals Vital signs reviewed: Yes - General General: Alert and oriented X 3, No acute distress, Well developed/nourished, Other (On video chat with her and children) - Cardiac Cardiac: RRR, Strong equal pulses - Respiratory Respiratory: No respiratory distress, Clear bilaterally, Other (Speaking in complete sentences without dyspnea) - Derm Derm: Normal color, Warm and dry, No rash - Neuro Neuro: Alert and oriented X 3, electrochemist 2-12 intact, No motor deficit, Normal speech Results - Vitals Vitals: Vital Signs - 24 hr 02/01/24 19:01 Temperature 37.2 C Heart Rate 86 Respiratory 20 Rate Blood Pressure 126/76 O2 Saturation 98 Oxygen O2 Source Room air PD Medical Decision Making - ED course Complexity details: reviewed results, re-evaluated patient, considered differential, d/w patient ED course: Well-appearing patient with known positive COVID-19, 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 Vitals unremarkable, patient speaking in complete sentences without dyspnea. Chest x-ray negative for acute findings. Patient given Toradol and Tylenol for headache. Tessalon Perles sent to pharmacy of choice. Note for work provided. Departure - Departure Disposition: 01 Home, Self Care Clinical Impression: COVID-19 Condition: Stable Instructions: ED Viral Syndrome Prescriptions: Benzonatate [Tessalon] 200 mg PO TID PRN #30 cap PRN Reason: Cough Comments: Your chest x-ray today was normal without any signs of pneumonia. You may take up to 1000 mg of Tylenol and 400 mg of ibuprofen every 4-6 hours as needed for pain or discomfort. Make sure to take no more than 4000 mg of Tylenol daily maximum. Tessalon Perles for cough have been sent to the [facility] base pharmacy. Your other reported symptoms are consistent with a COVID-19 infection and should resolve in several days on their own. Make sure to stay hydrated and drink plenty of fluids Forms: PCP List Discharge Date/Time: 02/01/24 20:30
[2024-02-01] MEDS: ACETAMINOPHEN 500 MG TABLET PO STA (19:36)
[2024-02-01] MEDS: KETOROLAC 30 MG/ML VIAL IM STA (19:36)
--- NOTE | 2024-02-01 20:17 | XRAY Report ---
PROCEDURE: Chest 2V INDICATIONS: cough, covid TECHNIQUE: 2 views of the chest were acquired. COMPARISON: None. FINDINGS: Surgical changes and devices: None. Lungs and pleura: No pleural effusions or pneumothorax. Lungs are clear. Peribronchial cuffing. Mediastinum: Mediastinal contours appear normal. Heart size is normal. Bones and chest wall: No suspicious bony lesions. Overlying soft tissues appear unremarkable. IMPRESSION: Peribronchial cuffing, suggestive of infectious or inflammatory bronchitis. Reviewed by: Iggy Dumont MD on 02/01/2024 8:16 PM PDT Approved by: Iggy Dumont MD on 02/01/2024 8:16 PM PDT Station ID: [id number]
== END 2024-02-01 20:30 | disposition home or self-care (01) ==
LOC: ED 18:54
DX: U07.1 COVID-19 (principal)
CPT/HCPCS: 71046; 99283; A9270